=== PATIENT | male | born 1955 | race Caucasian/White ===

== ENCOUNTER 2017-11-29 07:20 | Day surgery (SDC) | payer BC ==
[2017-11-28 10:48] VITALS: BMI 25.0
[2017-11-29 08:29] LABS: Estimated GFR-MDRD - POC Greater than 90
[2017-11-29] MEDS ORDERED: EPINEPHrine 1 MG/ML AMP ONE (09:15)
[2017-11-29] MEDS ORDERED: Midazolam HCl 2 mg/2 ml Vial ONE (09:21)
[2017-11-29] MEDS ORDERED: Fentanyl 100 MCG/2 ML VIAL ONE (09:21)
[2017-11-29 09:41] LABS: Anion Gap 12 mmol/L (10-20); BUN (Urea Nitrogen) 8 mg/dL (8.4-25.7); Calc. Creatinine Clearance 96 mL/min (70-130); Calcium 9.9 mg/dL (7.8-10.44); Carbon Dioxide 27 mmol/L (23-31); Chloride 94 mmol/L (98-107); Estimated GFR-MDRD Greater than 90; Glucose 87 mg/dL (80-115); Potassium 4.4 mmol/L (3.5-5.1); Sodium 129 mmol/L (136-145)
--- NOTE | 2017-11-29 10:38 | CT ---
CT NECK SOFT TISSUES WITH CONTRAST: Date: 11-29-17 History: 61-year-old male with lesion of vocal cord. Pre-operative evaluation. Comparison: None. FINDINGS: There is mild asymmetry between the right and left true and false vocal cords. There is a subtle smal l focal point of medialization of a portion of the right true vocal cord. The anterior portion of the left false and true vocal cords also has a point of slight medialization. The left pyriform sinus is completely effaced. This is associated with asymmetry in position between the right and left aryepig lottic folds: the right one is positioned slightly medially and superiorly. The right pyriform sinus is mildly dilated. The epiglottis is normal. No mass in the pre-epiglottic space or vallecula, other than mild asymmetri c enlargement of the lingual tonsil. No enlargement of the palatine tonsils or adenoids. No significa nt cervical lymphadenopathy by size criteria. There are multiple bilateral shotty lymph nodes at mult iple levels, nonspecific. No necrotic cervical lymph node. No obvious tumor mass breaking through the laryngeal skeleton. The carotid, parotid, parapharyngeal, perivertebral, submandibular, bone glue maker, posterior cervical, r etropharyngeal, and sublingual spaces demonstrate no significant abnormality. There is multilevel mil d and moderate degenerative disc disease in the cervical spine. No destructive osseous lesion. No obv ious mass in the upper mediastinum, in particular, around the right subclavian and brachiocephalic ar teries, or aortopulmonic window. Several nonspecific mildly enlarged mediastinal lymph nodes, nonspec ific. There is an approximately 1 x 0.6 x 0.6 cm well circumscribed solid nodule with attenuation sim ilar to that of thyroid gland, abutting the posterior surface of the mid-lower pole of the right lobe of the thyroid gland, and abutting the lateral surface of the right tracheoesophageal groove, at the C6-7 level (axial image 65 of 110, series 2; coronal image 35 of 86, series 300; sagittal image 38 o f 86, series 301). IMPRESSION: 1. Nonspecific asymmetry of the larynx and hypopharynx as described above. 2. A 1 x 0.6 x 0.6 cm nodule abutting the posterior surface of the right lobe of the thyroid gland. T his may represent a small thyroid nodule. However, the other possibility is a parathyroid adenoma. Re commend clinical correlation (is there hyperparathyroidism, elevated serum PTH and elevated serum pepito cium?). 3. Cervical spondylosis. Code T POS: MOHIT
[2017-11-29] MEDS ORDERED: Iopamidol 370 76% 100 ML VIAL ONE (13:42)
--- NOTE | 2017-11-30 12:40 | OP ---
DATE OF PROCEDURE: 11/29/2017 PREOPERATIVE DIAGNOSIS: Left true vocal lesion. POSTOPERATIVE DIAGNOSES: Left true vocal lesion and dystonia. PROCEDURE PERFORMED: Micro-suspension direct laryngoscopy. SURGEON: Tremayne Cortes. ESTIMATED BLOOD LOSS: 0 mL. COMPLICATIONS: None. ANESTHESIA: GETA. PROCEDURE IN DETAIL: The patient was taken to the operating room and placed supine on the table. Ge neral endotracheal anesthesia was obtained by the Anesthesia staff. With a Diana tube, the opera ting microscope was brought into the field. The oral cavity, oral pharynx and hypopharynx were exami doron with the Dedo laryngoscope. It was noted to show no mucosal lesion. The subglottic area and ant erior commissure were clear of lesions as well as the posterior commissure. There was a cauliflower- like, exophytic lesion rising in the mid portion of the left true vocal cord. This was removed using a cup forceps. A small ephedrine pledget was placed over this area and allowed to sit for a minute before it was removed. The patient tolerated the procedure well.
--- NOTE | 2017-12-01 00:18 | EKG ---
Test Reason : PREOP Blood Pressure : / mmHG Vent. Rate : 087 BPM Atrial Rate : 087 BPM P-R Int : 126 ms QRS Dur : 080 ms QT Int : 338 ms P-R-T Axes : 033 -01 022 degrees QTc Int : 406 ms Normal sinus rhythm Normal ECG When compared with ECG of 02-JUL-2015 17:19, Questionable change in QRS axis Confirmed by Roshan NEVAREZ ([id number]) on 12/01/2017 12:18:08 AM Referred By: MAHENDRA Confirmed By:Roshan NEVAREZ
== END 2017-11-29 11:23 | disposition home or self-care (01) ==
LOC: SDC 07:20 → SDC/OP 11:23
PROVIDERS: ATTEND Otolaryngology Plastic Surgery within the Head & Neck
PROC: 0CBV8ZZ Excision of Left Vocal Cord, Via Natural or Artificial Opening Endoscopic (ICD-10-PCS; principal; 2017-11-29)
DX: C32.9 Malignant neoplasm of larynx, unspecified (principal); I10 Essential (primary) hypertension; K51.90 Ulcerative colitis, unspecified, without complications; R13.10 Dysphagia, unspecified; K21.9 Gastro-esophageal reflux disease without esophagitis; J34.2 Deviated nasal septum; Z87.891 Personal history of nicotine dependence; Z79.899 Other long term (current) drug therapy; Z82.49 Family history of ischemic heart disease and other diseases of the circulatory system; Z80.9 Family history of malignant neoplasm, unspecified; Z98.890 Other specified postprocedural states
CPT/HCPCS: 36415; 70491; 80048; 88305; 93005; 93010; J0171; J2250; J3010

== ENCOUNTER 2018-06-20 06:54 | Day surgery (SDC) | payer BC ==
[2018-06-19 14:22] VITALS: BMI 26.3
[2018-06-20 08:22] LABS: Anion Gap 10 mmol/L (10-20); BUN (Urea Nitrogen) 6 mg/dL (8.4-25.7); Calc. Creatinine Clearance 96 mL/min (70-130); Calcium 9.6 mg/dL (7.8-10.44); Carbon Dioxide 30 mmol/L (23-31); Chloride 97 mmol/L (98-107); Estimated GFR-MDRD Greater than 90; Glucose 93 mg/dL (80-115); Potassium 4.2 mmol/L (3.5-5.1); Sodium 133 mmol/L (136-145)
[2018-06-20] MEDS ORDERED: Fentanyl 250 MCG/5 ML VIAL ONE (08:48)
[2018-06-20] MEDS ORDERED: Propofol 500 MG/50 ML VIAL ONE (08:48)
[2018-06-20] MEDS ORDERED: EPINEPHrine 1 MG/ML AMP ONE (08:49)
[2018-06-20] MEDS ORDERED: Midazolam HCl 2 mg/2 ml Vial ONE (09:02)
--- NOTE | 2018-06-20 12:17 | EKG ---
Test Reason : PREOP Blood Pressure : / mmHG Vent. Rate : 081 BPM Atrial Rate : 081 BPM P-R Int : 158 ms QRS Dur : 086 ms QT Int : 354 ms P-R-T Axes : 048 006 035 degrees QTc Int : 411 ms Normal sinus rhythm Normal ECG When compared with ECG of 29-NOV-2017 09:23, No significant change was found Confirmed by CHENG ALAN ([id number]) on 06/20/2018 12:16:57 PM Referred By: MAHENDRA Confirmed By:CHENG ALAN
[2018-06-20] MEDS ORDERED: Lidocaine 1% PF 5 ML VIAL ONE (14:27)
[2018-06-20] MEDS ORDERED: PROPOFOL 200 MG/20 ML VIAL ONE (14:27)
[2018-06-20] MEDS ORDERED: Dexamethasone 20 MG/5 ML VIAL ONE (14:27)
[2018-06-20] MEDS ORDERED: Succinylcholine Chloride 20 MG/ML 10 ml SYRINGE FS ONE (14:27)
--- NOTE | 2018-06-20 23:53 | OP ---
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 3. Dysphonia. POSTOPERATIVE DIAGNOSES: 1. Left true vocal cord leukoplakia. 2. History of malignant neoplasm larynx. 3. Dysphonia. PROCEDURES: Microsuspension direct laryngoscopy with biopsy. SURGEON: Delon Casper M.D. ESTIMATED BLOOD LOSS: 0 mL COMPLICATIONS: None. ANESTHESIA: GETA with Diana jet ventilation tube. PROCEDURE: The patient was taken to the operating room and placed supine on the table. A Diana j et ventilation tube was then placed within the trachea and the patient was ventilated. The head of b ed was turned to 90 degrees. A shoulder roll was placed. Tooth guard was placed over the upper teet h and the Dedo laryngoscope was used to examine the oral cavity and oropharynx, which showed no mucos al lesions. Following this, the posterior pharyngeal and lateral pharyngeal mucosa was intact and wa s noted to be intact. The piriform sinuses, postcricoid mucosa and epiglottis was noted to have some radiation changes, but no concerning mucosal lesions. Following this, the laryngeal inlet was place d in suspension and the operating microscope was used to visualize the true vocal cords under high po wer. Following this, the left true vocal cord had areas of leukoplakia on the superior aspect of cor d. These were gently removed using micro forceps and microlaryngeal scissors. These were sent for p athological analysis. An ephedrine soaked pledget was placed on this area for approximately 2 minute s. The patient tolerated the procedure well.
== END 2018-06-20 11:03 | disposition home or self-care (01) ==
LOC: SDC 06:54 → EEVIPCON 06:54 → SDC 11:03
PROVIDERS: ATTEND Otolaryngology Plastic Surgery within the Head & Neck
PROC: 0CBV8ZX Excision of Left Vocal Cord, Via Natural or Artificial Opening Endoscopic, Diagnostic (ICD-10-PCS; principal; 2018-06-20)
DX: C32.0 Malignant neoplasm of glottis (principal); K21.9 Gastro-esophageal reflux disease without esophagitis; Z87.891 Personal history of nicotine dependence
CPT/HCPCS: 36415; 80048; 88305; 93005; 93010; J0171; J1100; J2001; J2250; J2704; J3010